=== PATIENT | male | born 1965 | race Caucasian/White ===

== ENCOUNTER 2017-08-14 13:52 | Emergency (ER) | payer BC ==
[~2017-08-14] VITALS: Ht 193 cm; Wt 101.3 kg
[~2017-08-14 13:52] MED LIST: BAL B-1001 EACH PO; DAILY VITE1 EAC1 PO; MAGNESIUM400 M1 PO; SLO-NIACIN500 MG PO; VITAMIN C1000 MG PO; VITAMIN D310000 UNI1 PO; VITAMIN E400 UNIT PO
[2017-08-14] MEDS ORDERED: MOTRIN800 MG PO (16:50)
[2017-08-14 17:30] VITALS: BP 138/87
== END 2017-08-14 17:30 | disposition home or self-care (01) ==
LOC: EME 13:52
DX: I80.8 Phlebitis and thrombophlebitis of other sites (principal); M79.605 Pain in left leg
CPT/HCPCS: 93971; 99281; 99284